=== PATIENT | female | born 1995 | race Hispanic/Latino ===

== ENCOUNTER 2019-01-26 10:25 | Emergency (ER) | payer OTHER ==
--- NOTE | 2019-01-26 11:44 | CT ---
FHead CT without contrast : COMPARISON: 9 HISTORY: Change in vision. TECHNIQUE: Axial CT imaging at 5 mm intervals from vertex through skull base without contrast FINDINGS: The ventricular and cisternal system is within normal limits. There are no signs of intrace rebral hemorrhage or extra-axial fluid collections. The mastoid air cells and visualized sinuses are clear. IMPRESSION: No acute intracranial abnormalities.
[2019-01-26 12:30] LABS: Bilirubin Negative (Negative); Blood, Urine Negative (Negative); Clarity TURBID (Clear); Glucose, Urine (Dipstick) Negative (Negative); Leukocyte Negative (Negative); Nitrite Negative (Negative); Protein, Urine (Dipstick) Trace mg/dL (Neg-Trace); Specific Gravity, Urine 1.021 (1.002-1.036)
[2019-01-26 12:34] LABS: Pregnancy Test - Urine (BHCG) Negative (Negative); Pregu Control Background? CLEAR/WHITE (CLR/WHITE); Pregu Control Bar Appear? YES (CONTROL BAR); Specific Gravity 1.021 (1.002-1.036)
--- NOTE | 2019-01-26 12:49 | MRI ---
[facility] Brain WO Con: 01/26/2019 11:25 AM CLINICAL HISTORY: Emergency exam, altered vision. COMPARISON: Head CT, same date is referenced FINDINGS: Extra axial spaces: Normal in size and morphology for the patient's age. Hemorrhage: None. Ventricular system: Normal in size and morphology for the patient's age. Basal cisterns: Normal. Cerebral parenchyma: Normal. Midline shift: None. Cerebellum: Normal. Brainstem: Normal. Paranasal sinuses:Clear IMPRESSION:No acute intracranial abnormality.
== END 2019-01-26 14:25 | disposition home or self-care (01) ==
LOC: ERS 10:25
DX: H53.40 Unspecified visual field defects (principal)
CPT/HCPCS: 70450; 70551; 81003; 81025